=== PATIENT | male | born 1935 | race Caucasian/White ===

== ENCOUNTER → 2017-05-06 | Outpatient (CLI) | payer MEDICARE, BC ==
[~2017-05-06] MED LIST: ALAWAY 10 ML10 ML; AMOXICILLIN 50500 MG PO; ARICEPT10 MG PO; ASPIRIN 81M81 MG/TA2 PO; ASTELIN NASAL S34 ML; CENTRUM MEN'S; CLARITIN-D 10 M1 T24 PO; CLODERM; FLOMAX 0.40.4 MG/CAP PO; IBU400 MG PO; LIPITOR 40MG TA40 MG PO; OSTEO-BI-FLEX 21 TAB PO; PATADAY 2.5 ML2.5 ML OU; PEPCID 20MG TAB20 MG; TOPROL XL 50MG50 MG PO; TYLENOL 325MG325 MG PO
== END ==
LOC: COL.VAS 13:42
DX: I65.23 Occlusion and stenosis of bilateral carotid arteries (principal); R51 Headache
CPT/HCPCS: A9585

== ENCOUNTER → 2017-06-12 | Outpatient (CLI) | payer MEDICARE, BC | LOC: COL.RAD 09:33 | DX: Z01.812 Encounter for preprocedural laboratory examination (principal); I65.23 Occlusion and stenosis of bilateral carotid arteries; G31.89 Other specified degenerative diseases of nervous system | CPT/HCPCS: J7050; Q9967 ==

== ENCOUNTER → 2017-07-17 | Outpatient (CLI) | payer MEDICARE, BC | LOC: COL.RAD 14:24 | DX: M50.322 Other cervical disc degeneration at C5-C6 level (principal) ==

== ENCOUNTER 2017-09-02 14:15 | Outpatient (RCR) | payer MEDICARE, BC | END 2017-10-28 | disposition home or self-care (01) | LOC: MKS.ESL.PT | DX: M54.2 Cervicalgia (principal) | CPT/HCPCS: G8990-GP; G8991-GP; G8992-GP ==

== ENCOUNTER → 2018-03-25 | Outpatient (CLI) | payer MEDICARE, BC | LOC: COL.LAB 16:42 | DX: R73.02 Impaired glucose tolerance (oral) (principal) ==

== ENCOUNTER → 2018-04-17 | Outpatient (CLI) | payer MEDICARE, BC ==
[2018-04-17 10:10] LABS: ALBUMIN 4.3 gm/dL (3.5-5.0); BILIRUBIN,TOTAL 0.9 mg/dL (0.0-1.0); CALCIUM 9.3 mg/dL (8.4-10.2); CHOLESTEROL RISK RATIO 4.2; CREATININE, serum 0.93 mg/dL (0.66-1.25); POTASSIUM 4.2 mmol/L (3.4-5.0); TOTAL PROTEIN 7.3 gm/dL (6.4-8.2)
== END ==
LOC: COL.LAB 09:33
PROVIDERS: Family Medicine
DX: E78.00 Pure hypercholesterolemia, unspecified (principal)

== ENCOUNTER 2019-03-17 13:30 | Outpatient (RCR) | payer MEDICARE, BC | END 2019-06-15 | disposition home or self-care (01) | LOC: WSST | DX: R13.12 Dysphagia, oropharyngeal phase (principal) ==

== ENCOUNTER → 2019-03-24 | Outpatient (CLI) | payer MEDICARE, BC | LOC: COL.RAD 15:30 | DX: R13.12 Dysphagia, oropharyngeal phase (principal) ==

== ENCOUNTER → 2019-03-31 | Outpatient (CLI) | payer MEDICARE, BC ==
[2019-03-31 13:42] LABS: ALBUMIN 4.3 gm/dL (3.5-5.0); BILIRUBIN,TOTAL 0.5 mg/dL (0.0-1.0); CALCIUM 9.7 mg/dL (8.4-10.2); CHOLESTEROL RISK RATIO 4.5; CREATININE, serum 0.85 (0.66-1.25); POTASSIUM 5.2 mmol/L (3.4-5.0); TOTAL PROTEIN 7.5 gm/dL (6.4-8.2)
== END ==
LOC: COL.LAB 12:51
PROVIDERS: Family Medicine
DX: I10 Essential (primary) hypertension (principal)

== ENCOUNTER → 2019-05-07 | Outpatient (CLI) | payer MEDICARE, BC | LOC: COL.VAS 12:30 | DX: I65.23 Occlusion and stenosis of bilateral carotid arteries (principal) ==

== ENCOUNTER 2021-01-31 19:40 | Emergency (ER) | payer MEDICARE, BC ==
[~2021-01-31] VITALS: Ht 188 cm; Wt 86.4 kg
[2021-01-31 19:41] VITALS: BP 195/165
[2021-02-01 00:22] VITALS: PULSE 84; TEMP 97.5
== END 2021-02-01 00:23 | disposition home or self-care (01) ==
LOC: COL.ER 19:40
DX: R45.1 Restlessness and agitation (principal); R41.0 Disorientation, unspecified; F03.90 Unspecified dementia, unspecified severity, without behavioral disturbance, psychotic disturbance, mood disturbance, and anxiety; G30.9 Alzheimer's disease, unspecified; F02.81 Dementia in other diseases classified elsewhere, unspecified severity, with behavioral disturbance; M25.559 Pain in unspecified hip; Z79.899 Other long term (current) drug therapy; W19.XXXA Unspecified fall, initial encounter; W22.8XXA Striking against or struck by other objects, initial encounter; Y92.129 Unspecified place in nursing home as the place of occurrence of the external cause